=== PATIENT | male | born 1990 | race Caucasian/White ===

== ENCOUNTER 2023-10-18 17:07 | Emergency (ER) | payer OTHER ==
[~2023-10-18] VITALS: Ht 172.7 cm; Wt 63.5 kg
[2023-10-18 17:21] VITALS: O2SAT 98
[2023-10-18] MEDS ORDERED: CEFTRIAXONE 500 MG VIAL ONE (17:52)
[2023-10-18] MEDS ORDERED: LORAZEPAM 1 MG TABLET ONE (17:53)
[2023-10-18] MEDS ORDERED: LIDOCAINE HCL 2% 20 ML VIAL ONE (17:54)
[2023-10-18] MEDS: LORAZEPAM 0.5 MG TABLET PO ONE (18:01)
[2023-10-18] MEDS: CEFTRIAXONE 500 MG VIAL IM ONE (18:01)
[2023-10-18] MEDS ORDERED: DOXY100C5 PO (18:05)
[2023-10-18] MEDS ORDERED: LORA0.5T48 PO (18:05)
== END 2023-10-18 18:33 | disposition home or self-care (01) ==
LOC: ER 17:35
DX: F41.9 Anxiety disorder, unspecified (principal); F32.A Depression, unspecified; N50.819 Testicular pain, unspecified; N50.82 Scrotal pain; R06.02 Shortness of breath
CPT/HCPCS: 99283; 93005; 96372; J0696; J3490; A4606; A4663